=== PATIENT | male | born 1985 | race Caucasian/White ===

== ENCOUNTER 2020-12-08 23:59 | Emergency (ER) | payer MEDICAID ==
[~2020-12-08] VITALS: Ht 177.8 cm; Wt 80.0 kg
[2020-12-09 00:14] VITALS: BP 128/88
[2020-12-09] MEDS ORDERED: METH4TAB81 PO (00:18)
[2020-12-09] MEDS ORDERED: AMOX500C2 PO (00:18)
[2020-12-09] MEDS ORDERED: HYDR-3965 PO (00:18)
[2020-12-09] MEDS ORDERED: ONDA4TAB6 PO (00:18)
[2020-12-09] MEDS ORDERED: ibuprofen tablet 400 MG TABLET PO ONE (00:25)
== END 2020-12-09 00:37 | disposition home or self-care (01) ==
LOC: ER 23:59
DX: S02.5XXA Fracture of tooth (traumatic), initial encounter for closed fracture (principal); K08.89 Other specified disorders of teeth and supporting structures; K02.9 Dental caries, unspecified; K00.7 Teething syndrome; I96 Gangrene, not elsewhere classified; X58.XXXA Exposure to other specified factors, initial encounter; Y93.89 Activity, other specified; Y92.89 Other specified places as the place of occurrence of the external cause; Y99.8 Other external cause status
CPT/HCPCS: 99283

== ENCOUNTER 2020-12-11 20:47 | Emergency (ER) | payer MEDICAID ==
[~2020-12-11] VITALS: Ht 177.8 cm; Wt 73.9 kg
[~2020-12-11 20:47] MED LIST: AMOX500C2 PO; HYDR-3965 PO; METH4TAB81 PO; ONDA4TAB6 PO
[2020-12-11] MEDS ORDERED: ACET-2119 PO (21:25)
[2020-12-11] MEDS ORDERED: IBUP-1984 PO (21:25)
[2020-12-11] MEDS ORDERED: AMOX-422 PO (21:28)
[2020-12-11 22:14] VITALS: BP 148/68
== END 2020-12-11 21:35 | disposition home or self-care (01) ==
LOC: ER 20:47
DX: K08.89 Other specified disorders of teeth and supporting structures (principal); Z79.2 Long term (current) use of antibiotics; Z79.899 Other long term (current) drug therapy
CPT/HCPCS: 99283

== ENCOUNTER 2021-06-27 19:40 | Emergency (ER) | payer MEDICAID ==
[~2021-06-27] VITALS: Ht 177.8 cm; Wt 80.0 kg
[~2021-06-27 19:40] MED LIST changes: -AMOX500C2 PO; -HYDR-3965 PO
--- NOTE | 2021-06-27 20:01 | NUR ---
pt was decontaminated and maalox treatment provided He continues to scream and not allow any other care.
[2021-06-27] MEDS ORDERED: ibuprofen tablet 400 MG TABLET PO ONE (20:15)
[2021-06-27] MEDS ORDERED: acetaminophen 325mg tablet PO ONE (20:15)
== END 2021-06-27 20:45 | disposition home or self-care (01) ==
LOC: ER 19:40
DX: T75.89XA Other specified effects of external causes, initial encounter (principal); Z79.899 Other long term (current) drug therapy; X58.XXXA Exposure to other specified factors, initial encounter; Y93.89 Activity, other specified; Y92.89 Other specified places as the place of occurrence of the external cause; Y99.8 Other external cause status
CPT/HCPCS: 99283

== ENCOUNTER 2024-11-04 01:19 | Emergency (ER) | payer MEDICAID ==
[~2024-11-04] VITALS: Ht 180.3 cm; Wt 87.5 kg
[2024-11-04 01:23] VITALS: BP 108/91; PULSE 108; RESP 22; O2SAT 90
[2024-11-04] MEDS ORDERED: normal saline 1000ml 1,000 ML IV ONE (01:25)
[2024-11-04 01:42] LABS: BASOPHILS % (AUTO) 0.7 % (0-1); EOSINOPHILS % (AUTO) 0.9 % (0-6); HEMATOCRIT 42.6 % (42.0-52.0); LYMPHOCYTES # (AUTO) 1.2 X10'3 (1.1-4.8); MEAN CORPUSCULAR HGB CONC 35.3 g/dL (33.0-36.5); MEAN CORPUSCULAR VOLUME 87.8 FL (78-98); MONOCYTES # (AUTO) 0.3 X10'3 (0-0.9); MONOCYTES % (AUTO) 6.3 % (2-12); NEUTROPHILS # (AUTO) 3.3 X10'3 (1.8-7.7); NEUTROPHILS % (AUTO) 68.1 % (42-75); PLATELET COUNT 262 X10'3 (140-440); RED BLOOD COUNT 4.84 X10'6 (4.70-6.10); RED CELL DISTRIBUTION WIDTH 12.2 % (11.5-14.5); WHITE BLOOD COUNT 4.8 X10'3 (4.5-11.0)
[2024-11-04 01:48] LABS: ALANINE AMINOTRANSFERASE 340 U/L (12-78); ALBUMIN/GLOBULIN RATIO 1.1 (1.1-1.5); ALKALINE PHOSPHATASE 57 IU/L (46-116); ANION GAP 12 (8-16); ASPARTATE AMINO TRANSFERASE 255 U/L (10-37); BILIRUBIN,TOTAL 1.1 MG/DL (0.1-1.0); BLOOD UREA NITROGEN 13 MG/DL (7-18); BUN/CREATININE RATIO 7.3 (10.0-20.0); CALCIUM 9.5 MG/DL (8.5-10.1); CHLORIDE 101 MMOL/L (99-107); CREATININE 1.79 MG/DL (0.60-1.10); GLUCOSE 252 MG/DL (70-104); SODIUM 141 MMOL/L (135-145); TOTAL CARBON DIOXIDE 28.1 MMOL/L (24-32); TOTAL PROTEIN 7.5 G/DL (6.4-8.2); eCRCL 58 ML/MIN; eGFR 43 ML/MIN
[2024-11-04 01:58] LABS: PRO BRAIN NATRIURETIC PEPTIDE < 30 PG/ML (0-125)
== END 2024-11-04 02:11 | disposition left against medical advice (07) ==
LOC: ER 01:19
DX: T40.601A Poisoning by unspecified narcotics, accidental (unintentional), initial encounter (principal); Y92.89 Other specified places as the place of occurrence of the external cause; J96.90 Respiratory failure, unspecified, unspecified whether with hypoxia or hypercapnia
CPT/HCPCS: 36415; 80053; 83605; 83880; 84484; 85025; 99284; 99291

== ENCOUNTER 2024-11-04 05:47 | Emergency (ER) | payer MEDICAID ==
[~2024-11-04] VITALS: Ht 175.3 cm; Wt 81.8 kg
[2024-11-04] MEDS: ondansetron 4mg rapidly disintigrating tab PO ONE (06:07)
[2024-11-04 06:18] VITALS: BP 132/74; PULSE 80; RESP 14; TEMP 98.3; O2SAT 98
== END 2024-11-04 06:23 | disposition home or self-care (01) ==
LOC: ER 05:49
DX: T40.2X1A Poisoning by other opioids, accidental (unintentional), initial encounter (principal); R11.0 Nausea; Z59.00 Homelessness unspecified; Y92.89 Other specified places as the place of occurrence of the external cause
CPT/HCPCS: 99283

== ENCOUNTER 2025-04-14 10:25 | Outpatient (CLI) | payer MEDICAID ==
--- NOTE | 2025-04-14 10:57 | ELECTROCARDIOGRAPH REPORT ---
[facility] Test Date: 2025-04-14 Test Time: 10:32:36 Pat Name: EDWARD HENRY Department: PRE/OP CARDIOLOGY Room: Gender: M Home Agent: : 1985 Requested By: CLAIR ALCARAZ Order Number: [id number] Reading MD: Dr. FLY Andujar Measurements Intervals [place] Rate: 96 P: 85 ME: 133 QRS: 82 QRSD: 92 T: 59 QT: 377 QTc: 477 Interpretive Statements Sinus rhythm Borderline prolonged QT interval Electronically Signed On 04-14-2025 17:25:[address] FLY Andujar Please click the below link to view image of tracing.
== END 2025-04-14 23:59 | disposition home or self-care (01) ==
LOC: RAD 10:25
PROVIDERS: ATTEND Physician Assistant
DX: F11.20 Opioid dependence, uncomplicated (principal); I49.8 Other specified cardiac arrhythmias
CPT/HCPCS: 93005

== ENCOUNTER 2025-04-20 08:13 | Outpatient (CLI) | payer MEDICAID ==
--- NOTE | 2025-04-20 09:10 | ELECTROCARDIOGRAPH REPORT ---
[facility] Test Date: 2025-04-20 Test Time: 08:30:07 Pat Name: EDWARD HENRY Department: PRE/OP CARDIOLOGY Room: Gender: M Electrical Research Engineer: PEPE : 1985 Requested By: CLAIR ALCARAZ Order Number: [id number] Reading MD: Dr. FLY Andujar Measurements Intervals [place] Rate: 66 P: 66 MN: 126 QRS: 79 QRSD: 99 T: 63 QT: 432 QTc: 453 Interpretive Statements Sinus rhythm Electronically Signed On 04-20-2025 19:52:[address] FLY Andujar Please click the below link to view image of tracing.
== END 2025-04-20 23:59 | disposition home or self-care (01) ==
LOC: RAD 08:13
PROVIDERS: ATTEND Physician Assistant
DX: F11.20 Opioid dependence, uncomplicated (principal); I49.8 Other specified cardiac arrhythmias
CPT/HCPCS: 93005

== ENCOUNTER 2025-04-28 10:09 | Outpatient (CLI) | payer MEDICAID ==
--- NOTE | 2025-04-28 11:33 | ELECTROCARDIOGRAPH REPORT ---
[facility] Test Date: 2025-04-28 Test Time: 10:57:40 Pat Name: EDWARD HENRY Department: PRE/OP CARDIOLOGY Room: Gender: M Business Services Coordinator: : 1985 Requested By: CLAIR ALCARAZ Order Number: [id number] Reading MD: Dr. FLY Andujar Measurements Intervals [place] Rate: 80 P: 84 RI: 135 QRS: 77 QRSD: 95 T: 86 QT: 405 QTc: 468 Interpretive Statements Sinus rhythm Electronically Signed On 04-29-2025 15:34:[address] FLY Andujar Please click the below link to view image of tracing.
== END 2025-04-28 23:59 | disposition home or self-care (01) ==
LOC: RAD 10:09
PROVIDERS: ATTEND Physician Assistant
DX: F11.20 Opioid dependence, uncomplicated (principal)
CPT/HCPCS: 93005

== ENCOUNTER 2025-05-24 14:52 | Outpatient (CLI) | payer MEDICAID ==
--- NOTE | 2025-05-24 15:53 | ELECTROCARDIOGRAPH REPORT ---
[facility] Test Date: 2025-05-24 Test Time: 15:12:07 Pat Name: EDWARD HENRY Department: PRE/OP CARDIOLOGY Room: Gender: M Environmental Compliance Specialist: : 1985 Requested By: CLAIR ALCARAZ Order Number: [id number] Reading MD: Dr. FLY Andujar Measurements Intervals [place] Rate: 71 P: 61 HI: 129 QRS: 76 QRSD: 89 T: 76 QT: 420 QTc: 457 Interpretive Statements Sinus rhythm Electronically Signed On 05-25-2025 16:53:[address] FLY Andujar Please click the below link to view image of tracing.
== END 2025-05-24 23:59 | disposition home or self-care (01) ==
LOC: RAD 14:52
PROVIDERS: ATTEND Physician Assistant
DX: F11.20 Opioid dependence, uncomplicated (principal); I49.8 Other specified cardiac arrhythmias
CPT/HCPCS: 93005